=== PATIENT | male | born 1990 | race Two or more races ===

== ENCOUNTER 2022-04-27 15:28 | Emergency (ER) | payer MEDICAID, OTHER ==
[~2022-04-27] VITALS: Ht 177.8 cm; Wt 111.9 kg
[2022-04-27 17:17] VITALS: BP 127/73
[2022-04-27] MEDS ORDERED: IBUP800T27 PO (17:35)
[2022-04-27] MEDS ORDERED: METH750T22 PO (17:35)
== END 2022-04-27 17:50 | disposition home or self-care (01) ==
LOC: ER 15:28
DX: S39.012A Strain of muscle, fascia and tendon of lower back, initial encounter (principal); V49.9XXA Car occupant (driver) (passenger) injured in unspecified traffic accident, initial encounter; Y93.89 Activity, other specified; Y92.89 Other specified places as the place of occurrence of the external cause; Y99.8 Other external cause status
CPT/HCPCS: 72040; 72070; 72100

== ENCOUNTER 2024-06-26 23:12 | Emergency (ER) | payer MEDICAID, SELFPAY ==
[~2024-06-26] VITALS: Ht 172.7 cm; Wt 120.5 kg
[~2024-06-26 23:12] MED LIST: IBUP-1456 PO; METH-1182 PO
[2024-06-27 00:08] VITALS: BP 139/76; PULSE 70; RESP 16; TEMP 97.6; O2SAT 98
--- NOTE | 2024-06-27 00:16 | ED.PDOC ---
GI ASSESSMENT HPI Comments 34-year-old male who came to ER for GI bleed. Patient has history of hemorrhoids, states for the past few days, has been experiencing rectal bleeding, bright red stool to black. He denies being constipated. Complaining of lower abdominal pain and lower back pains also. Chief Complaint: GI Bleed Time Seen by MD: 00:15 Primary Care Provider: Unknown Reviewed Notes: Nurses Notes Allergies: Coded Allergies: NO KNOWN ALLERGIES (Unverified , 04/27/22) Home Meds Active Scripts Methocarbamol (Methocarbamol) 750 Mg Tab, 750 MG PO QHSP PRN, #20 TAB Prov:AURELIANO PENN 04/27/22 Ibuprofen (Ibuprofen) 800 Mg Tab, 1 TAB PO TID, #30 TAB Prov:AURELIANO PENN 04/27/22 Information Source: Patient Mode of Arrival: Ambulatory Timing: Days Duration: Intermittent Prehospital treatment: None Quality: Aching Vomitus: None Stool: Blood Streaked Severity: Moderate Recent: None Recent Hx of: None Pain Location: Epigastric Modifying Factors: Nothing Associated sign and symptoms: Blood in Stool Past Medical History PAST MEDICAL HISTORY: Denies Surgical History: Denies all surgeries Family History Family History: Reviewed,noncontributory to illness Social History Smoker: Non-Smoker Alcohol: Denies ETOH Use Drugs: Denies Drug Use Lives In: Home Constitutional: denies: chills, diaphoresis, fatigue, fever, malaise, sweats, weakness, others EENTM: denies: blurred vision, double vision, ear bleeding, ear discharge, ear drainage, ear pain, ear ringing, eye pain, eye redness, hearing loss, mouth pain, mouth swelling, nasal discharge, nose bleeding, nose congestion, nose pain, photophobia, tearing, throat pain, throat swelling, voice changes, others Respiratory: denies: cough, hemoptysis, orthopnea, SOB at rest, shortness of breath, SOB with excertion, stridor, wheezing, others Cardiovascular: denies: chest pain, dizzy spells, diaphoresis, Dyspnea on exertion, edema, irregular heart beat, left arm pain, lightheadedness, palpitations, PND, syncope, others Gastrointestinal: reports: abdominal pain, rectal bleeding; denies: abdomen distended, blood streaked bowels, constipated, diarrhea, dysphagia, difficulty swallowing, hematemesis, melena, nausea, poor appetite, poor fluid intake, rectal pain, vomiting, others Genitourinary: denies: burning, dysuria, flank pain, frequency, hematuria, incontinence, penile discharge, penile sore, pain, testicle pain, testicle swelling, urgency, others Physical Exam General Appearance: No Apparent Distress, Normal HEENT: Normal ENT Inspection, Pharynx Normal, TMs Normal Neck: Full Range of Motion, Non-Tender, Normal, Normal Inspection Respiratory: Chest Non-Tender, Lungs Clear, No Accessory Muscle Use, No Respiratory Distress, Normal Breath Sounds Cardiovascular: No Edema, No JVD, No Murmur, No Gallop, Normal Peripheral Pulses, Regular Rate/Rhythm Breast Exam: Deferred Gastrointestinal: No Organomegaly, Non Tender, No Pulsatile Mass, Normal Bowel Sounds, Soft Genitalia: Deferred Pelvic: Deferred Rectal: Deferred Extremities: No calf tenderness, Normal capillary refill, Normal inspection, Normal range of motion, Non-tender, No pedal edema Musculoskeletal : Apperance: Normal Neurologic: Alert, mechanic sound technician II-XII nml as Tested, No Motor Deficits, Normal Affect, Normal Mood, No Sensory Deficits Cerebellar Function: Normal Reflexes: Normal Skin: Dry, Normal Color, Warm Lymphatic: No Adenopathy Was a procedure done? Was a procedure done?: No GI differential Dx Differential Diagnosis: Constipation, Diverticular disease, Gastritis/PUD, Gastroenteritis, GI hemorrhage, Inflammatory BD, Ischemic Bowel, Anemia, Other (Hemorrhoids) X-Ray, Labs, Meds, VS Vital Signs Date Time Temp Pulse Resp B/P (MAP) Pulse Ox O2 Delivery O2 Flow Rate FiO2 06/27/24 00:08 97.6 70 16 139/76 (97) 98 97.6 Lab Test 06/26/24 23:59 Range/Units White Blood Count 8.7 4.4-10.8 10^3/uL Red Blood Count 4.91 4.5-5.90 10^6/uL Hemoglobin 14.8 13.5-17.5 g/dL Hematocrit 43.3 41.0-53.0 % Mean Corpuscular Volume 88.1 80.0-100.0 fL Mean Corpuscular Hemoglobin 30.1 28.0-32.0 pg Mean Corpuscular Hemoglobin Concent 34.1 32.0-36.0 g/dL Red Cell Distribution Width 13.8 11.8-14.3 % Platelet Count 231 140-450 10^3/uL Mean Platelet Volume 8.5 6.9-10.8 fL Neutrophils (%) (Auto) 57.3 37.0-80.0 % Lymphocytes (%) (Auto) 32.6 10.0-50.0 % Monocytes (%) (Auto) 7.7 0.0-12.0 % Eosinophils (%) (Auto) 1.9 0.0-7.0 % Basophils (%) (Auto) 0.5 0.0-2.0 % Neutrophils # (Auto) 5.0 1.6-8.6 10 ^3/uL Lymphocytes # (Auto) 2.8 0.4-5.4 10 ^3/uL Monocytes # (Auto) 0.7 0-1.3 10 ^3/uL Eosinophils # (Auto) 0.2 0-0.8 10 ^3/uL Basophils # (Auto) 0 0-0.2 10 ^3/uL Nucleated Red Blood Cells 0.2 % Prothrombin Time 10.8 9.3-11.8 sec Prothrombin Time INR 1.02 0.9-1.15 Activated Partial Thromboplast Time 28.2 24.5-34.5 SEC Sodium Level 139 136-145 mmol/L Potassium Level 3.9 3.5-5.1 mmol/L Chloride Level 105 98-107 mmol/L Carbon Dioxide Level 25 20-31 mmol/L Anion Gap 9 5-15 Blood Urea Nitrogen 13 9-23 mg/dL Creatinine 0.90 0.700-1.30 mg/dL Glomerular Filtration Rate Calc 115 >90 mL/min BUN/Creatinine Ratio 14.4 10.0-20.0 Serum Glucose 100 74-106 mg/dL Calcium Level 9.7 8.7-10.4 mg/dL Total Bilirubin 0.7 0.2-1.0 mg/dL Aspartate Amino Transferase (AST) 33 13-40 U/L Alanine Aminotransferase (ALT) 58 H 7-40 U/L Alkaline Phosphatase 64 46-116 U/L Total Protein 7.7 5.7-8.2 g/dL Albumin 4.9 H 3.2-4.8 g/dL Time of 1ST Reevaluation: 00:11 Reevaluation 1ST: Unchanged Patient Education/Counseling: Diagnosis, Treatment Family Education/Counseling: No Family Present Departure 1 Departure Time of Disposition: 01:25 Impression: Primary Impression: Rectal bleeding Disposition: HOME / SELF CARE / HOMELESS Condition: Stable Discharged With: Self Critical Care Note Critical Care Time?: No Stability Stability form required: No Heart Score Heart Score: Heart Score Response (Comments) Value History N/A 0 EKG N/A 0 Age N/A 0 Risk Factors N/A 0 Troponin N/A 0 Total 0 I personally scribed for YAAKOV ROMO MD ([email or web address]) on 06/27/24 at 00:16. Electronically submitted by Jean-Paul Nava ([email or web address]). YAAKOV ROMO MD Jun 27, 2024 00:16
[2024-06-27 00:34] LABS: Basophils # (auto) 0 10 ^3/uL (0-0.2); Basophils % (auto) 0.5 % (0.0-2.0); Eosinophils # (auto) 0.2 10 ^3/uL (0-0.8); Eosinophils % (auto) 1.9 % (0.0-7.0); Hematocrit 43.3 % (41.0-53.0); Hemoglobin 14.8 g/dL (13.5-17.5); Lymphocytes # (auto) 2.8 10 ^3/uL (0.4-5.4); Lymphocytes % (auto) 32.6 % (10.0-50.0); Mean Corpuscular Hemoglobin 30.1 pg (28.0-32.0); Mean Corpuscular Hgb Conc. 34.1 g/dL (32.0-36.0); Mean Corpuscular Volume 88.1 fL (80.0-100.0); Monocytes # (auto) 0.7 10 ^3/uL (0-1.3); Monocytes % (auto) 7.7 % (0.0-12.0); Neutrophils % (auto) 57.3 % (37.0-80.0); Nucleated Red Blood Cells % 0.2 %; Platelet Count (auto) 231 10^3/uL (140-450); Red Blood Cells 4.91 10^6/uL (4.5-5.90); Red Cell Distribution Width 13.8 % (11.8-14.3); White Blood Cell 8.7 10^3/uL (4.4-10.8)
[2024-06-27 00:47] LABS: INR 1.02 (0.9-1.15); Partial Thromboplastin Time 28.2 SEC (24.5-34.5); Prothrombin Time 10.8 sec (9.3-11.8)
[2024-06-27 00:50] LABS: Alkaline Phosphatase 64 U/L (46-116); Anion Gap 9 (5-15); Aspartate Aminotransferase 33 U/L (13-40); BUN/Creatinine Ratio 14.4 (10.0-20.0); Blood Urea Nitrogen 13 mg/dL (9-23); Calcium 9.7 mg/dL (8.7-10.4); Carbon Dioxide 25 mmol/L (20-31); Chloride 105 mmol/L (98-107); Glucose 100 mg/dL (74-106); Potassium 3.9 mmol/L (3.5-5.1); Sodium 139 mmol/L (136-145); Total Protein 7.7 g/dL (5.7-8.2)
[2024-06-27 00:51] LABS: Bilirubin, Total 0.7 mg/dL (0.2-1.0)
[2024-06-27 00:52] LABS: Alanine Aminotransferase 58 U/L (7-40); Albumin 4.9 g/dL (3.2-4.8)
== END 2024-06-27 08:07 | disposition home or self-care (01) ==
LOC: ER 23:12
DX: K62.5 Hemorrhage of anus and rectum (principal); Z79.1 Long term (current) use of non-steroidal anti-inflammatories (NSAID); R10.30 Lower abdominal pain, unspecified; M54.50 Low back pain, unspecified
CPT/HCPCS: 36415; 80053; 85025; 85610; 85730